=== PATIENT | male | born 1970 | race Caucasian/White ===

== ENCOUNTER 2019-10-16 09:03 | Outpatient (CLI) | payer BC, SELFPAY ==
--- NOTE | ~2019-10-16 | MR_ITS ---
EXAMINATION: MR knee LT wo con DATE: 10/16/2019 09:58 INDICATION: Medial left knee pain TECHNIQUE: Magnetic resonance imaging (MRI) of the left knee was performed without intravenous contra st. Sequences included coronal PD-weighted FSE, coronal PD-weighted FS FSE, sagittal T2-weighted FSE , sagittal PD-weighted FS FSE and axial PD weighted fat saturated FSE. COMPARISON: None. FINDINGS: Medial compartment: Likely complex tear at the posterior horn of the medial meniscus which involves the inferior articula r surface at the periphery of the medial side of the posterior horn which extends anteriorly to invol ve the superior and inferior articular surfaces and likely also the inner free edge at the more later al aspect of the mid to lateral posterior horn. Small region of chondral swelling and partial-thickne ss fissuring without degenerative subarticular changes at the lateral side of the anterior weightbear ing medial femoral condyle. Partial thickness cartilage loss with smooth chondral surface along the m edial rim of the medial tibial plateau with mild underlying subarticular edema. Lateral compartment: Lateral meniscus is normal. Shallow chondral ulceration with deeper fissuring but without degenerativ e subarticular changes at the anterior to central weightbearing medial femoral condyle. Patellofemoral compartment: Mild chondral fissuring involving less than 50% the cartilage thickness along the inferior aspect of the lateral patellar facet. Trochlear cartilage is normal. Tiny marginal osteophytes are present. Ligaments and tendons: Anterior and posterior cruciate ligaments are normal. The medial collateral ligament and fibular scott ateral ligament complex are normal. The extensor mechanism is normal. The visualized medial and later al hamstring tendons as well as the iliotibial band are normal. Fluid: Small knee joint effusion at the suprapatellar pouch. No loose osteochondral bodies identified. Osseous/other: Aside from mild edema at the medial tibial plateau there is normal marrow signal. Small low signal in tensity bone island at the medial tibial plateau. No fracture or pathologic marrow replacing process. IMPRESSION: 1. Complex tear of the posterior horn of the medial meniscus. 2. Mild tricompartmental osteoarthritis with regions of moderate grade chondromalacia in all 3 compar tments. Reviewed, dictated and finalized at location A. IMPRESSION: 1. Complex tear of the posterior horn of the medial meniscus. 2. Mild tricompartmental osteoarthritis with regions of moderate grade chondrom alacia in all 3 compartments.
== END 2019-10-16 09:04 | disposition home or self-care (01) ==
PROVIDERS: PCP Internal Medicine; Visit Provider Internal Medicine
DX: S83.232A Complex tear of medial meniscus, current injury, left knee, initial encounter (principal); X58.XXXA Exposure to other specified factors, initial encounter; M17.12 Unilateral primary osteoarthritis, left knee
CPT/HCPCS: 73721

== ENCOUNTER → 2022-09-14 08:14 | Outpatient (CLI) | payer BC, SELFPAY ==
--- NOTE | ~2022-09-14 | MR_ITS ---
MRI of the left knee Clinical history: Pain Technique: Coronal proton density and proton density-weighted images, sagittal proton-density and T2 fat-sat images, and axial proton-density fat-saturated images were acquired. Findings: Anterior and posterior cruciate ligaments are intact. Medial collateral ligament and the la teral collateral ligament complex are intact. Popliteus tendon is intact. There is complex tearing of the posterior horn of the lateral meniscus. There is probable tearing ext ensively along the medial meniscus versus post meniscectomy change. There is mild chondral thinning at the medial joint line. There is focal high-grade chondral defect a t the central aspect of the lateral femoral condyle, measuring approximately 4 mm in diameter. Patell ofemoral articular cartilage is well preserved. Bone marrow signals are unremarkable. Extensor mechanism is intact. Moderate to large joint effusion is present. No Perez's cyst. Impression: Complex tearing of the posterior horn of lateral meniscus. Extensive medial meniscus with tear versus postmeniscectomy change. Correlate with surgical history. 4 mm high-grade chondral lesion at the lateral femoral condyle. Moderate to large joint effusion. Reviewed, dictated and finalized at [facility]. Impression: Complex tearing of the posterior horn of lateral meniscus. Extensive medial meniscus with tear versus postmeniscectomy change. Correlate w ith surgical history. 4 mm high-grade chondral lesion at the lateral femoral condyle. Moderate to large joint effusion.
== END ==
PROVIDERS: PCP Nurse Practitioner Family; Visit Provider Nurse Practitioner Family
DX: S83.272A Complex tear of lateral meniscus, current injury, left knee, initial encounter (principal); X58.XXXA Exposure to other specified factors, initial encounter; M25.462 Effusion, left knee
CPT/HCPCS: 73721

== ENCOUNTER 2023-03-07 15:19 | Outpatient (CLI) | payer BC, SELFPAY ==
--- NOTE | ~2023-03-07 | MR_ITS ---
EXAMINATION: MR shoulder RT wo con DATE: 03/07/2023 15:47 INDICATION: Right shoulder pain TECHNIQUE: Magnetic resonance imaging (MRI) of the right shoulder was performed without intravenous c ontrast. Sequences included axial PD-weighted FS FSE, coronal oblique PD-weighted FS FSE, coronal obl ique T2-weighted FS FSE, sagittal PD-weighted FS FSE, and sagittal T1-weighted SE. COMPARISON: None. FINDINGS: Coracoacromial arch: The acromion undersurface is curved in morphology (type II). There is thickening and mild increased s ignal of the medial side of the coracoacromial ligament. Moderate acromioclavicular osteoarthritis. Rotator cuff: Mild supraspinatus and infraspinatus tendinopathy. There is a small intrasubstance tear which appears to involve up to one third of the tendon thickness along the middle facet footplate of the anterior infraspinatus and conjoined portion of the supraspinatus and infraspinatus tendons. The tear measures approximately 1 cm AP. There is associated subtle concavity to the bursal side of the tendon centere d possible 1 cm from the footplate. There is also a small intrasubstance ganglion cyst extending with in the infraspinatus tendon and myotendinous junction 6 cm medially from the footplate and measuring up to 14 x 3 mm in maximal dimensions measured orthogonal to the axis of the tendon. Mild subscapular is tendinopathy with partial thickness tear involving the lateral third of the cephalad two thirds of the lesser tuberosity footplate of the tendon. The more superficial bursal side of the tendon remain s intact and contiguous with the transverse humeral ligament.. The teres minor tendon is normal. Norm al rotator cuff muscle bulk and signal. Biceps tendon, glenoid labrum and glenohumeral cartilage: The long head of the biceps tendon is subluxed across the lateral rim of the intertubercular groove a nd into the subscapularis tendon tear defect overlying the lateral margin of the lesser tuberosity. T here is mild tendinopathy without discrete tear of the subluxed portion of the tendon. Small mild par tial-thickness tear at the base of the posterosuperior glenoid labrum. Glenohumeral cartilage is norm al. Fluid: Small amount of fluid in the long head biceps tendon sheath which is disproportionate to the physiolo gic amount fluid in the glenohumeral joint consistent with mild bicipital tenosynovitis. No loose ost eochondral bodies. No abnormal increased fluid in the subacromial/subdeltoid bursa to suggest bursiti s. Bones: Mild degenerative cystlike and edema-like signal change at the acromioclavicular joint. Bone marrow s ignal is otherwise normal with no fracture or pathologic marrow replacing process. IMPRESSION: 1. Mild supraspinatus and infraspinatus tendinopathy with small mild intrasubstance tear along the mi ddle facet footplate of the anterior infraspinatus and conjoined portion of the infraspinatus and sup raspinatus tendons. 2. Mild tendinopathy with separate small mild partial-thickness tear involving the superolateral aspe ct of the lesser tuberosity footplate of the tendon. 3. Mild bicipital tenosynovitis and mild tendinopathy of the long head biceps tendon where it is subl uxed into the subscapularis tendon tear defect. 4. Small full-thickness tear at the base of the posterosuperior glenoid labrum. 5. Moderate acromioclavicular osteoarthritis. Reviewed, dictated and finalized at location A. REBUILDER IMPRESSION: 1. Mild supraspinatus and infraspinatus tendinopathy with small mild intrasubst ance tear along the middle facet footplate of the anterior infraspinatus and co njoined portion of the infraspinatus and supraspinatus tendons. 2. Mild tendinopathy with separate small mild partial-thickness tear involving the superolateral aspect of the lesser tuberos
== END 2023-03-07 15:20 ==
LOC: MICIMG 15:20
PROVIDERS: PCP Nurse Practitioner Family; Visit Provider Nurse Practitioner Family
DX: M19.011 Primary osteoarthritis, right shoulder (principal); M75.21 Bicipital tendinitis, right shoulder
CPT/HCPCS: 73221

== ENCOUNTER 2023-04-19 01:40 | Day surgery (SDC) | payer BC, SELFPAY ==
[2023-03-27 09:32] VITALS: BMI 28.8
--- NOTE | 2023-04-14 13:05 | SUR.PREOP ---
Patient called regarding upcoming procedure. Reviewed preop instructions, appointment times, and procedure prep.
--- NOTE | 2023-04-18 17:46 | PM.HPGS ---
History of Present Illness History of Present Illness Consent: Risks, benefits, and alternatives have been discussed and questions answered. Patient agrees to proceed with procedure. Chief complaint: neoplasm screening Narrative: Rodolfo Dong is a 53 year old male referred for colon cancer screening. Review of Systems Review of Systems: All systems reviewed & are unremarkable except as noted in HPI and below PMFSH Past Medical History Medical History Hypertension Surgical History Surgical History H/O knee surgery History of left hip replacement Status post incision and drainage L hip Family History Family History Father Diabetes mellitus Hypertension Social History Social History Smoking status: Never smoker Alcohol intake: current Drinks per week: 2 Alcohol use details: Rarely Substance use: never Substance use type: does not use Lack of Transportation: No Lack of Food: Never True Current Housing: I Have Housing Concerned About Future Housing: No Difficulty Paying Gas/Electric Bills: No Difficulty Paying for Meds: No Currently Unemployed: No Difficulty w/ Childcare or Family Care: No Living arrangements: alone 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 Gender identity (if verbalized by the patient): Male Sexual Orientation (if Verbalized by the Patient): Straight or Heterosexual Agree to blood products: Yes Meds Home Medications and Allergies Home Medications Medication Instructions Recorded Confirmed Type lisinopril 20 See Rx Instructions .Route 12/29/22 04/19/23 Rx mg-hydrochlorothiazide 25 mg tablet .COMPLEX #90 tabs clobetasol 0.05 % topical ointment 1 applic topical BID PRN Itching 03/27/23 04/19/23 History Allergies Allergy/AdvReac Type Severity Reaction Status Date / Time acetaminophen [From Vicodin] Allergy Rash Verified 04/19/23 09:42 hydrocodone [From Vicodin] Allergy Rash Verified 04/19/23 09:42 amoxicillin AdvReac Mild Rash Verified 04/19/23 09:42 Exam Resp: Auscultation: clear to auscultation bilaterally Cardio: Rate: regular rate Rhythm: regular rhythm GI: GI Palp: Yes Soft to palpation and No Tenderness to palpation present (GI) Assessment and Plan Assessment and plan (1) Colon cancer screening: Code(s): Z12.11 - Encounter for screening for malignant neoplasm of colon Status: Acute Assessment and Plan: Colonoscopy with possible biopsy or polypectomy or cautery or injection of substances.
[2023-04-19 09:36] VITALS: BP 152/91; PULSE 84; RESP 18; TEMP 36.1; O2SAT 100; BMI 28.3
[2023-04-19] MEDS: LACTATED RINGERS 1,000 ML 150 ML IV CONT (09:55)
--- NOTE | 2023-04-19 10:09 | P.PNAN_ITS ---
Anes - Initial Pre Proc Eval Procedure: Operation Date: 04/19/23 11:00 Proposed Procedures p Screening Colonoscopy - Stewart Estrada MD Date/Time: 04/19/23 10:09 Surgeon: Stewart Estrada MD Pre Op Diagnosis: neoplasm screening Patient Data Age: 53 Gender: M Height: 1.78 m Weight: 89.4 kg Last Vital Signs Temp 97.0 F L 04/19/23 09:36 Pulse 84 04/19/23 09:36 Pulse Ox 100 04/19/23 09:36 O2 Del Method Room Air 04/19/23 09:36 Allergies Allergy/AdvReac Type Severity Reaction Status Date / Time acetaminophen [From Vicodin] Allergy Rash Verified 04/19/23 09:42 hydrocodone [From Vicodin] Allergy Rash Verified 04/19/23 09:42 amoxicillin AdvReac Mild Rash Verified 04/19/23 09:42 Home Medications Medication Instructions Recorded Confirmed Type lisinopril 20 See Rx Instructions .Route 12/29/22 04/19/23 Rx mg-hydrochlorothiazide 25 mg tablet .COMPLEX #90 tabs clobetasol 0.05 % topical ointment 1 applic topical BID PRN Itching 03/27/23 04/19/23 History Patient hx anesthesia problems: none Family hx anesthesia problems: none Results Review: All pre-operative results and documents have been reviewed as part of the pre- operative evaluation. [facility] Past Medical History Medical History (Updated 04/18/23 @ 17:46 by Stewart Estrada MD) Hypertension Surgical History Surgical History H/O knee surgery History of left hip replacement Status post incision and drainage L hip Family History Family History Father Diabetes mellitus Hypertension Social History Social History Smoking status: Never smoker Alcohol intake: current Drinks per week: 2 Alcohol use details: Rarely Substance use: never Substance use type: does not use Lack of Transportation: No Lack of Food: Never True Current Housing: I Have Housing Concerned About Future Housing: No Difficulty Paying Gas/Electric Bills: No Difficulty Paying for Meds: No Currently Unemployed: No Difficulty w/ Childcare or Family Care: No Living arrangements: alone 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 Gender identity (if verbalized by the patient): Male Sexual Orientation (if Verbalized by the Patient): Straight or Heterosexual Agree to blood products: Yes Anes - Eval Final PreProcedure Day of Procedure 04/19/23 10:09 Patient weight: overweight Heart: regular rate and rhythm Lungs: clear to auscultation Airway: Mallampati scale class II Neurological: alert and oriented Last oral intake: >/= 8 hours ASA classification: II Emergent: no Anesthetic plan: proceed Anesthesia type and monitoring: general GIVS and standard monitoring Results Review: All pre-operative results and documents have been reviewed as part of the pre- operative evaluation. Informed Consent: The patient's anesthetic plan and its attendant risks and benefits were discussed with the patient/family/POA. Questions were solicited and answers provided to the satisfaction of the patient/family/POA.
[2023-04-19] MEDS: SIMETHICONE ORAL SUSPENSION 20 MG/0.3 ML 30 ML BOTTLE 0.6 ML IRRIGATION (10:58)
[2023-04-19 11:12] VITALS: BP 107/66; PULSE 61; RESP 16; O2SAT 100
[2023-04-19 11:22] VITALS: BP 129/79; PULSE 84; RESP 22; O2SAT 99
[2023-04-19 11:32] VITALS: BP 125/78; PULSE 78; RESP 26; O2SAT 99
== END 2023-04-19 11:38 | disposition home or self-care (01) ==
PROVIDERS: PCP Family Medicine; Visit Provider Internal Medicine Gastroenterology
PROC: 0DJD8ZZ Inspection of Lower Intestinal Tract, Via Natural or Artificial Opening Endoscopic (ICD-10-PCS; CPT 45378; principal; 2023-04-19 11:00)
DX: Z12.11 Encounter for screening for malignant neoplasm of colon (principal); I10 Essential (primary) hypertension
CPT/HCPCS: 45378; J2704; J7120

== ENCOUNTER 2023-11-30 12:08 | Outpatient (CLI) | payer OTHER, SELFPAY ==
--- NOTE | ~2023-11-30 | XR_ITS ---
XR shoulder RT min 2V Ordering provider: Ladarius Cruz MD History: . M25.511 - Pain in right shoulder - INJURY X 10 MONTH AGO . Comparison: February 23, 2023 FINDINGS: BONES: No acute fracture or dislocation. JOINT SPACES: The acromioclavicular joint is normal. The glenohumeral joint is normal. SOFT TISSUES: Normal. IMPRESSION: No acute osseous abnormality right shoulder. Reviewed, dictated and finalized at location A.
== END 2023-11-30 12:09 | disposition home or self-care (01) ==
PROVIDERS: PCP Nurse Practitioner Family; Visit Provider Orthopaedic Surgery
DX: M25.511 Pain in right shoulder (principal)
CPT/HCPCS: 73030

== ENCOUNTER 2024-01-11 12:03 | Outpatient (CLI) | payer OTHER, SELFPAY ==
--- NOTE | 2024-01-11 12:26 | ECG_ITS ---
Test Date: 2024-01-11 12:38:57 Measurements Intervals [place] Rate: 69 P: 40 [place]: 184 QRS: -14 QRSD: 126 T: 74 QT: 414 QTc: 445 Interpretive Statements SINUS RHYTHM RIGHT BUNDLE BRANCH BLOCK LEFT VENTRICULAR HYPERTROPHY WITH ST-T CHANGE MINIMAL Q WAVES- HIGH LATERAL LEADS ABNORMAL ECG No previous ECG available for comparison Electronically Signed On 01-11-2024 12:59:17 CDT by Ramu Holden D.O.
[2024-01-11 12:39] LABS: Anion Gap 6 mmol/L (4-12); Blood Urea Nitrogen 14 mg/dL (9-20); Calcium 9.2 mg/dL (8.4-10.2); Carbon Dioxide 30 mmol/L (22-30); Chloride 98 mmol/L (98-107); Estimated Glomerular Filt Rate > 60; Glucose 98 mg/dL (65-110); Potassium 4.1 mmol/L (3.4-5.0); Sodium 134 mmol/L (137-145)
== END 2024-01-11 12:04 | disposition home or self-care (01) ==
LOC: ANHLAB 12:05
PROVIDERS: PCP Nurse Practitioner Family; Visit Provider Orthopaedic Surgery
DX: I10 Essential (primary) hypertension (principal); Z01.818 Encounter for other preprocedural examination; I45.10 Unspecified right bundle-branch block
CPT/HCPCS: 36415; 80048; 93005

== ENCOUNTER 2024-01-23 00:51 | Day surgery (SDC) | payer OTHER, SELFPAY ==
[2024-01-11 09:18] VITALS: BMI 29.6
--- NOTE | 2024-01-11 09:23 | PC.NURSE ---
Report to the Outpatient Waiting Room, entrance under the green pavilion located off [facility], at time _1100 on date _01/23/24_. Planned Procedure Time: _1300.? Time changes happen often and if your time is changed the preop area will call you the afternoon before. - You and your visitor will be asked to self-screen and do not enter if you have any COVID symptoms. Please call surgeon if you need to reschedule. - A mask is optional within the hospital at this time. Patients may have clear liquids (water, carbonated beverages, clear teas, apple juice) until 3 hours prior to surgery with a maximum of 20 ounces. - No food from midnight until time of surgery and no smoking - Infants may have breast milk until 4 hours before surgery, formula 6 hours prior to surgery. - Children will be allowed to drink immediately following surgery.? If applicable, please bring a bottle or sippy cup to assist with drinking. Juice, water, soda, and popsicles are readily available.? For infants on formula, please bring formula the day of surgery.? Pacifiers are allowed. Take only the following medications with a SIP of water on the morning of surgery: NONE DO NOT STOP ANY OF YOUR OTHER PRESCRIPTION MEDICATIONS PRIOR TO SURGERY EXCEPT THE FOLLOWING Medications to discontinue per physician NONE Date to take last dose Please no make-up, nail amharic, hairspray, perfume, deodorant, or body powder the day of surgery.? No jewelry (including any body piercings) or valuables the day of surgery, leave them at home.? Please take a shower or bath the night before, or the morning of, surgery with an antibacterial soap.? Wear comfortable, loose fitting clothing.? Children are encouraged to wear pajamas. - Jewelry must be removed prior to entering the operating room.? Rings and piercings that are not removed may be cut off. - The hospital will not accept responsibility for valuables.? - Please leave all valuables, including medications, at home the day of surgery. If you are going home after surgery, a licensed local company truck driver must drive you home.? - NO public transportation without another adult if you receive anesthesia. - We recommend that an adult stay with you for 24 hours following discharge. - We also recommend that you do not drive, make important decision, drink alcoholic beverages, or take any drugs that were not prescribed by your health care provider for at least 24 hours after your discharge time. For Pediatric surgeries, we recommend two adults accompany the child home. Follow any additional instructions given to you from your surgeon. Telephone instructions given to __PATIENT_and asked if any additional questions and then verbalized understanding. Patient advised to call surgeon office or pre surgery nurse liaison [phone] if any additional questions.
[2024-01-23] VITALS (7 sets, daily range): BP systolic 130–163; BP diastolic 72–92; PULSE 65–81; RESP 13–20; TEMP 36.5–37; O2SAT 95–100; BMI 29.1
--- NOTE | 2024-01-23 09:56 | P.PNAN_ITS ---
Anes - Initial Pre Proc Eval Procedure: Operation Date: 01/23/24 13:00 Proposed Procedures p Right Biceps Tenodesis with Rotator Cuff Repair and Labral Debridement - Ladarius Cruz MD Date/Time: 01/23/24 09:56 Surgeon: Ladarius Cruz MD Pre Op Diagnosis: right partial thickness rotator cuff tear Patient Data Age: 53 Gender: M Height: 1.75 m Weight: 91 kg Allergies Allergy/AdvReac Type Severity Reaction Status Date / Time hydrocodone [From Vicodin] Allergy Rash Verified 01/23/24 12:46 Home Medications Medication Instructions Recorded Confirmed Type lisinopril 20 See Rx Instructions .Route 07/11/23 01/23/24 Rx mg-hydrochlorothiazide 25 mg tablet .COMPLEX #90 tabs Patient hx anesthesia problems: none Family hx anesthesia problems: none Results Review: All pre-operative results and documents have been reviewed as part of the pre- operative evaluation. PMFSH Past Medical History Medical History Hypertension Surgical History Surgical History H/O knee surgery History of left hip replacement Status post incision and drainage L hip Family History Family History Father Diabetes mellitus Hypertension Social History Social History Smoking status: Never smoker Alcohol intake: current Drinks per week: 2 Alcohol use details: Rarely Substance use: never Substance use type: does not use Lack of Transportation: No Lack of Food: Never True Current Housing: I Have Housing Concerned About Future Housing: No Difficulty Paying Gas/Electric Bills: No Difficulty Paying for Meds: No Currently Unemployed: No Difficulty w/ Childcare or Family Care: No Living arrangements: with family 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 Gender identity (if verbalized by the patient): Male Sexual Orientation (if Verbalized by the Patient): Straight or Heterosexual Agree to blood products: Yes Anes - Eval Final PreProcedure Day of Procedure 01/23/24 09:56 Patient weight: overweight Heart: regular rate and rhythm Lungs: clear to auscultation Airway: Mallampati scale class III Neurological: alert and oriented Last oral intake: >/= 8 hours ASA classification: II Emergent: no Anesthetic plan: proceed Anesthesia type and monitoring: general ETT and standard monitoring Results Review: All pre-operative results and documents have been reviewed as part of the pre- operative evaluation. Informed Consent: The patient's anesthetic plan and its attendant risks and benefits were discussed with the patient/family/POA. Questions were solicited and answers provided to the satisfaction of the patient/family/POA.
--- NOTE | 2024-01-23 10:10 | WPDHPUPDATE1 ---
History and Physical Update Update Date/Time: 01/23/24 10:10 History and Physical has been reviewed, including an updated exam of the patient. There are NO changes in the patient's condition. Risks, benefits, and alternatives have been discussed and questions answered. Patient agrees to proceed with procedure.
[2024-01-23] MEDS: LACTATED RINGERS 1,000 ML 30 ML IV CONT ×2 (12:00→16:01)
[2024-01-23] MEDS: ACETAMINOPHEN 500 MG TABLET 1000 MG PO (12:37)
[2024-01-23] MEDS: KETOROLAC 15 MG/ML VIAL (*BKC) IV PUSH (12:37)
--- NOTE | 2024-01-23 13:11 | WPDANESPNB ---
Anes - Peripheral Nerve Block Date/Time: 01/23/24 13:11 I have discussed with the patient/family/POA the placement of a peripheral nerve block for post-operative pain management, including associated risks, benefits, complications, and side effects. Alternative methods of post-operative analgesia were detailed. Questions were solicited and answers provided to the satisfaction of the patient/family/POA. Time-Out: A pre-procedural Time-Out was completed immediately before starting the procedure and confirmed: Patient Identification, Site, Procedure, Patient Position and the Availability of Requisite Equipment. Clinical Indications: Acute post-operative pain management requested by the operative surgeon. Nerve Block Insertion Note Anes-nerve block: interscalene right Patient position: supine Skin prep: chlorhexidine Needle: 22 gauge, stimulating, insulated echogenic needle. Needle length: 50 mm Technique: ultrasound Injectate: bupivacaine 0.5% with epi 5 mcg/ml (30cc- no epi) Observations: tolerated well Complications: none Procedure start time:: 1312 Procedure end time:: 1316
[2024-01-23] MEDS: ceFAZolin 2 GM/D5W 50 ML 2 GM/50 ML BAG IVPB (13:53)
--- NOTE | 2024-01-23 16:13 | W.PM.PROC2 ---
Procedure Note - Detailed Date of Procedure 01/23/24 Pre-op Diagnosis Right shoulder partial thickness rotator cuff tear 2. Biceps tendinosis 3. Subacromial impingement. Post-op Diagnosis Same (1. Partial thickness rotator cuff tear 2. Subacromial impingement 3. Biceps tendinosis 4. Degenerative labral tear) Procedure Performed Right shoulder 1. Arthroscopic rotator cuff repair 2. Arthroscopic subacromial decompression 3. Arthroscopic biceps tenodesis Surgeon Ladarius Cruz MD Janitorial Tech Bria Tavera PA-C Anesthesia General and Regional ( interscalene block) Findings Mid to high-grade partial articular side rotator cuff tear supraspinatus, repaired with the Regeneten collagen implant with 5 CARLOS anchors and 2 peek anchors. Partial-thickness upper border subscapularis tear, and severe biceps tendinosis with anterior subluxation, repaired with SwiveLock anchor and loop and tack system. Degenerative superior labral tearing without diffuse labral tearing or articular cartilage degeneration. Type 2 acromion treated with acromioplasty. Description of Procedure Preoperative antibiotics were given. An interscalene block was administered in the preoperative area. The patient was bought brought to the operating room. A general anesthetic was administered. The patient was carefully positioned in the beach chair position. The head and neck were carefully positioned. The non operative extremity was also carefully positioned. The shoulder was prepped and draped in the usual sterile fashion. Examination was performed. Standard posterior and anterior arthroscopic portals were established. Inflow achieved with the arthroscopic pump using saline and epinephrine. The glenohumeral joint was carefully inspected. The articular cartilage was healthy. The supraspinatus showed grade 3 partial-thickness tearing. It was marked with a PDS suture. The biceps was significantly frayed at the anchor and at the articular margin where it was displaced anteriorly. The biceps was repaired with the loop intact system and released from the labrum. The subscapularis was peeling from the upper border significantly. A horizontal mattress suture was placed and this was combined with the biceps repair into a bio absorbable SwiveLock anchor at the articular margin. Attention was turned to the subacromial space. The bursa quite thickened particularly anteriorly. This corresponded with the MRI findings. The bursa was excised. The marked rotator cuff tendon appeared quite healthy on the bursal side. There was hyperemia but no tearing. Acromioplasty was performed at the anterolateral sloping acromion. The Regeneten graft was inserted and secured medially with 5 CARLOS soft tissue anchors. Laterally the implant was secured with 2 peek anchors. The arthroscopic instruments were removed. The wounds were closed with 3-0 Monocryl subcuticular suture and steri strips. There were no complications. A sling was applied and the patient brought to the recovery room. Physician registered sales assistant, Bria Tavera PA-C, required for surgery; including patient positioning, draping, arthroscopic camera operation, maintaining instrument position, suture retrieval, anchor deployment, wound closure, and dressing and sling placement. Implants Arthrex 4.75 bioabsorbable SwiveLock anchor. [employer] Regeneten collagen implant large size. Five CARLOS soft tissue anchors. Two peek bone anchors. Estimated Blood Loss 10 Pathology None sent Complications No immediate complications Condition Stable Disposition PACU [facility] Billing Surgery - Charge Forward: Surgery Billing
== END 2024-01-23 17:15 | disposition home or self-care (01) ==
PROVIDERS: PCP Nurse Practitioner Family; Visit Provider Orthopaedic Surgery
PROC: (CPT 23420; principal; 2024-01-23 13:00)
DX: M75.111 Incomplete rotator cuff tear or rupture of right shoulder, not specified as traumatic (principal); S43.431A Superior glenoid labrum lesion of right shoulder, initial encounter; M75.21 Bicipital tendinitis, right shoulder; M75.41 Impingement syndrome of right shoulder; M75.81 Other shoulder lesions, right shoulder; M67.813 Other specified disorders of tendon, right shoulder; I10 Essential (primary) hypertension; G89.18 Other acute postprocedural pain; Z98.890 Other specified postprocedural states; X58.XXXA Exposure to other specified factors, initial encounter; X50.0XXA Overexertion from strenuous movement or load, initial encounter; Y93.61 Activity, american tackle football
CPT/HCPCS: 64415; 29827; 29826; 29828; A4565; A9270; C1713; J0171; J0330; J0690; J1100; J1885; J2003; J2250; J2405; J2704; J7120